=== PATIENT | male | born 1980 | race American Indian/Alaskan Native ===

== ENCOUNTER 2016-11-06 08:55 | Emergency (ER) | payer SELFPAY ==
--- NOTE | 2016-11-06 09:41 | XRay Report ---
ROUTINE CHEST, TWO VIEWS: History: Hemoptysis. PA and lateral views demonstrate the heart and mediastinal contour to be of normal size and shape. The lungs are clear and fully expanded and the soft tissues and bony structures are normal. IMPRESSION: Normal study.
[2016-11-06 10:11] LABS: Anion Gap 16 mmol/L; Blood Urea Nitrogen 11 mg/dL (9-20); Calcium 8.7 mg/dL (8.4-10.2); Carbon Dioxide 26 mmol/L (22-30); Chloride 104.6 mmol/L (98-107); Glucose 94 mg/dL (75-100); Potassium 4.8 mmol/L (3.6-5.0); Sodium 142 mmol/L (137-145)
[2016-11-06 10:21] LABS: INR 0.94 (0.87-1.13); Partial Thromboplastin Time 28.1 Sec. (24.2-36.6)
[2016-11-06 10:32] LABS: Hematocrit 44.5 % (35.5-45.6); Hemoglobin 14.6 gm/dl (11.8-15.2); Mean Corpuscular HGB Conc 33 % (32-34); Mean Corpuscular Hemoglobin 27 pg (28-32); Mean Corpuscular Volume 83 fl (84-94); Red Blood Count 5.34 M/mm3 (3.65-5.03); Red Cell Distribution Width 15.3 % (13.2-15.2); White Blood Count 6.2 K/mm3 (4.5-11.0)
--- NOTE | 2016-11-06 11:01 | Emergency Department Report ---
- General Chief Complaint: Upper Respiratory Infection Stated Complaint: COUGHING UP BLOOD Time Seen by Provider: 11/06/16 10:50 Source: patient Mode of arrival: Ambulatory Limitations: No Limitations - History of Present Illness Initial Comments: Patient is a 36 years old male, more his cough congestion he said he has been coughing blood denied any fever symptoms being on for 3 days no nausea no vomiting patient denied any history of high blood pressure normalized blood pressure is high here today I wanted to treat him that he'll refuse he said he will follow-up with his primary care physician. MD Complaint: cough Severity: moderate Associated Symptoms: cough. denies: fever, chills, chest pain, shortness of breath, abdominal pain, nausea, vomiting - Related Data Previous Rx's Medication Instructions Recorded Last Taken Type Amoxicillin [Amoxicillin TAB] 875 mg PO BID #14 tablet 11/06/16 Unknown Rx P-Ephed HCl/Codeine/Guaifen 10 ml PO Q4H PRN #100 ml 11/06/16 Unknown Rx [Cheratussin DAC 30-10-100 mg/5 ml] amLODIPine [Norvasc] 10 mg PO DAILY #30 tab 11/06/16 Unknown Rx Allergies Allergy/AdvReac Type Severity Reaction Status Date / Time No Known Allergies Allergy Unverified 11/06/16 09:07 ED Review of Systems ROS: Stated complaint: COUGHING UP BLOOD Other details as noted in HPI Constitutional: denies: chills, fever Respiratory: cough (greenish sputum with blood). denies: shortness of breath, SOB with exertion Cardiovascular: denies: chest pain ED Past Medical Hx - Past Medical History Previous Medical History?: No Additional medical history: obeisity - Surgical History Past Surgical History?: Yes Additional Surgical History: tonsils - Social History Smoking Status: Current Some Day Smoker Substance Use Type: Alcohol, Marijuana - Medications Home Medications: Home Medications Medication Instructions Recorded Confirmed Last Taken Type Amoxicillin [Amoxicillin TAB] 875 mg PO BID #14 tablet 11/06/16 Unknown Rx P-Ephed HCl/Codeine/Guaifen 10 ml PO Q4H PRN #100 ml 11/06/16 Unknown Rx [Cheratussin DAC 30-10-100 mg/5 ml] amLODIPine [Norvasc] 10 mg PO DAILY #30 tab 11/06/16 Unknown Rx ED Physical Exam - General Limitations: No Limitations General appearance: alert - ENT ENT exam: Present: normal exam - Neck Neck exam: Present: normal inspection. Absent: lymphadenopathy - Respiratory Respiratory exam: Present: normal lung sounds bilaterally. Absent: respiratory distress, wheezes, rales, rhonchi, stridor, chest wall tenderness, accessory muscle use - Cardiovascular Cardiovascular Exam: Present: regular rate, normal rhythm, normal heart sounds - GI/Abdominal GI/Abdominal exam: Present: soft. Absent: distended, tenderness, guarding, rebound, rigid, normal bowel sounds - Neurological Exam Neurological exam: Present: alert, oriented X3, CN II-XII intact - Skin Skin exam: Present: warm, normal color ED Course Vital Signs 11/06/16 11/06/16 11/06/16 09:09 09:52 09:55 Temperature 98.0 F Pulse Rate 78 Respiratory 17 Rate Blood Pressure 187/122 183/105 183/105 Blood Pressure 187/122 [Right] O2 Sat by Pulse 98 97 Oximetry 11/06/16 11/06/16 11/06/16 09:57 09:59 10:01 Temperature Pulse Rate 72 69 73 Respiratory 23 23 12 Rate Blood Pressure 178/101 178/101 178/101 Blood Pressure [Right] O2 Sat by Pulse 93 98 98 Oximetry 11/06/16 11/06/16 11/06/16 10:02 10:05 10:07 Temperature Pulse Rate 71 73 78 Respiratory 21 16 22 Rate Blood Pressure 169/104 169/104 169/104 Blood Pressure [Right] O2 Sat by Pulse 94 99 98 Oximetry 11/06/16 11/06/16 11/06/16 10:09 10:11 10:20 Temperature Pulse Rate 69 79 Respiratory 16 17 17 Rate Blood Pressure 169/104 169/104 Blood Pressure [Right] O2 Sat by Pulse 95 100 98 Oximetry ED Medical Decision Making - Lab Data Result diagrams: 11/06/16 09:40 11/06/16 09:40 Critical care attestation.: If time is entered above; I have spent that time in minutes in the direct care of this critically ill patient, excluding procedure time. ED Disposition Clinical Impression: Acute bronchitis, Hypertension Disposition: DC-01 TO HOME OR SELFCARE Is pt being admited?: No Condition: Stable Instructions: Acute Bronchitis (ED), Hypertension (ED) Referrals: PRIMARY CARE, [Primary Care Provider] - 3-5 Days
[2016-11-06 11:09] LABS: Platelet Count 226 K/mm3 (140-440)
[2016-11-06 11:12] VITALS: BP 183/105
== END 2016-11-06 11:11 | disposition home or self-care (01) ==
LOC: ED 08:55
DX: J20.9 Acute bronchitis, unspecified (principal); I10 Essential (primary) hypertension; F17.210 Nicotine dependence, cigarettes, uncomplicated; F12.10 Cannabis abuse, uncomplicated
CPT/HCPCS: 36415; 71020; 80048; 85025; 85610; 85730; 93005; 93010; 99284

== ENCOUNTER 2016-12-10 18:00 | Emergency (ER) | payer SELFPAY ==
[2016-12-11 08:44] VITALS: BP 188/112
== END 2016-12-11 19:39 | disposition left against medical advice (07) ==
LOC: ED 22:30
DX: M25.512 Pain in left shoulder (principal); Z53.21 Procedure and treatment not carried out due to patient leaving prior to being seen by health care provider

== ENCOUNTER 2017-04-20 11:00 | Emergency (ER) | payer SELFPAY ==
[2017-04-20] MEDS ORDERED: TYLENOL #3 PO ONE (14:40)
[2017-04-20] MEDS ORDERED: MOTRIN PO ONE (14:40)
--- NOTE | 2017-04-20 14:40 | Emergency Department Report ---
ED General Adult HPI - General Chief complaint: Earache Stated complaint: EAR INFECTION Time Seen by Provider: 04/20/17 14:33 Source: patient, RN notes reviewed, old records reviewed Mode of arrival: Ambulatory Limitations: No Limitations - History of Present Illness Initial comments: This is a 36-year-old male who was previously on known to this provider, typically follows at the [facility]. Has a history of hypertension, ran out of medicine a few months ago. Presents to the ER with dental pain in bilateral ear pain for 2 weeks. His pain is sharp. It increases with percussion, drinking, eating. Denies headache, neck pain, chest pain, abdominal pain, shortness of breath, stridor, tinnitus, vertigo, change in auditory acuity. -: Gradual Location: mouth (bilateral ears) Quality: aching Consistency: constant Improves with: rest Worsens with: movement Associated Symptoms: denies: confusion, chest pain, cough, diaphoresis, fever/ chills, headaches, loss of appetite, malaise, nausea/vomiting, shortness of breath, syncope, weakness - Related Data Previous Rx's Medication Instructions Recorded Last Taken Type Amoxicillin [Amoxicillin TAB] 875 mg PO BID #14 tablet 11/06/16 Unknown Rx Pseudoephed/Codeine/Guaifen 10 ml PO Q4H PRN #100 ml 11/06/16 Unknown Rx [Cheratussin DAC 30-10-100 mg/5 ml] Acetaminophen [Tylenol Arthritis] 650 mg PO Q6HR PRN #30 tablet.er 04/20/17 Unknown Rx Chlorhexidine Mouthwash [Peridex] 15 ml MM BID #1 bottle 04/20/17 Unknown Rx Ibuprofen [Motrin] 600 mg PO Q8H PRN #30 tablet 04/20/17 Unknown Rx Penicillin V Potassium 500 mg PO BID #14 tablet 04/20/17 Unknown Rx amLODIPine [Norvasc] 10 mg PO DAILY #30 tab 04/20/17 Unknown Rx oxyCODONE [Roxicodone] 5 mg PO Q6HR PRN #15 tablet 04/20/17 Unknown Rx Allergies Allergy/AdvReac Type Severity Reaction Status Date / Time No Known Allergies Allergy Verified 04/20/17 11:13 ED Review of Systems ROS: Stated complaint: EAR INFECTION Other details as noted in HPI ED Past Medical Hx - Past Medical History Hx Hypertension: Yes Additional medical history: obeisity - Surgical History Additional Surgical History: tonsils - Social History Smoking Status: Current Every Day Smoker Substance Use Type: None - Medications Home Medications: Home Medications Medication Instructions Recorded Confirmed Last Taken Type Amoxicillin [Amoxicillin TAB] 875 mg PO BID #14 tablet 11/06/16 Unknown Rx Pseudoephed/Codeine/Guaifen 10 ml PO Q4H PRN #100 ml 11/06/16 Unknown Rx [Cheratussin DAC 30-10-100 mg/5 ml] Acetaminophen [Tylenol Arthritis] 650 mg PO Q6HR PRN #30 tablet.er 04/20/17 Unknown Rx Chlorhexidine Mouthwash [Peridex] 15 ml MM BID #1 bottle 04/20/17 Unknown Rx Ibuprofen [Motrin] 600 mg PO Q8H PRN #30 tablet 04/20/17 Unknown Rx Penicillin V Potassium 500 mg PO BID #14 tablet 04/20/17 Unknown Rx amLODIPine [Norvasc] 10 mg PO DAILY #30 tab 04/20/17 Unknown Rx oxyCODONE [Roxicodone] 5 mg PO Q6HR PRN #15 tablet 04/20/17 Unknown Rx ED Physical Exam - General Limitations: No Limitations General appearance: alert, in no apparent distress - Head Head exam: Present: atraumatic, normocephalic - Eye Eye exam: Present: normal appearance, EOMI. Absent: nystagmus - ENT ENT exam: Present: normal exam (numerous dental caries noted. Teeth #15, 16 tender and fractured. Tooth #25 tender and fractured. There is no stridor, there is no swelling the base of the tongue. There is no trismus or malocclusion. The patient is speaking in full sentences.), normal orophraynx, mucous membranes moist, TM's normal bilaterally, normal external ear exam, other (there is no mastoid tenderness. There is no tenderness on the helix. There are no vesicles. External auditory canals within normal limits.) - Neck Neck exam: Present: normal inspection, full ROM - Respiratory Respiratory exam: Present: normal lung sounds bilaterally. Absent: respiratory distress - Cardiovascular Cardiovascular Exam: Present: regular rate, normal rhythm, normal heart sounds. Absent: bradycardia, tachycardia, irregular rhythm, systolic murmur, diastolic murmur, rubs, gallop - GI/Abdominal GI/Abdominal exam: Present: soft, normal bowel sounds. Absent: distended, tenderness, guarding, rebound, rigid, pulsatile mass - Rectal Rectal exam: Present: deferred - Extremities Exam Extremities exam: Present: normal inspection, full ROM - Back Exam Back exam: Present: normal inspection, full ROM. Absent: tenderness, CVA tenderness (R), paraspinal tenderness, vertebral tenderness - Neurological Exam Neurological exam: Present: alert, oriented X3, CN II-XII intact, normal gait, other (Extraocular movements intact. Tongue midline. No facial droop. Facial sensation intact to light touch in the V1, V2, V3 distribution bilaterally. 5 and 5 strength in 4 extremities.. Sensation is intact to light touch in 4 extremities.). Absent: motor sensory deficit - Psychiatric Psychiatric exam: Present: normal affect, normal mood - Skin Skin exam: Present: warm, dry, intact, normal color. Absent: rash ED Course Vital Signs 04/20/17 04/20/17 04/20/17 11:13 14:44 14:45 Temperature 98.2 F Pulse Rate 86 Respiratory 18 18 18 Rate Blood Pressure 178/110 O2 Sat by Pulse 100 Oximetry ED Medical Decision Making - Lab Data Vital Signs 04/20/17 04/20/17 04/20/17 11:13 14:44 14:45 Temperature 98.2 F Pulse Rate 86 Respiratory 18 18 18 Rate Blood Pressure 178/110 O2 Sat by Pulse 100 Oximetry - Medical Decision Making Differential diagnosis, including but not limited to: Medication refill, hypertension, dentalgia, referred pain Assessment and plan: 36-year-old male with dentalgia, bilateral ear pain, most likely tension referred pain. Also has incidental hypertension which is asymptomatic. Patient will have his amlodipine prescription refilled. He will be discharged with pain medication, chlorhexidine, antibiotics, instructed to follow up with outpatient primary care, dental. Return precautions reviewed. Critical care attestation.: If time is entered above; I have spent that time in minutes in the direct care of this critically ill patient, excluding procedure time. ED Disposition Clinical Impression: Dentalgia, Elevated blood pressure reading Disposition: TO HOME OR SELFCARE Is pt being admited?: No Does the pt Need Aspirin: No Condition: Stable Instructions: Dental Caries (ED), Toothache (ED), Hypertension (ED) Additional Instructions: Take medications as needed/directed. Follow up with a dentist as soon as possible. Please note that blood pressure was elevated. This seems to be followed up by a primary care doctor within the next month. Long-term complications of hypertension and elevated blood pressure includes stroke, heart attack, disability, , paralysis, loss of quality of life. Return to the ER right away with new pain, worsened pain, migration of pain, fevers, chills, lethargy, irritability, vomiting, change in mental status, confusion, inability to tolerate liquid feeds, extremity weakness, numbness. Prescriptions: amLODIPine [Norvasc] 10 mg PO DAILY #30 tab Referrals: PRIMARY CAREMD [Primary Care Provider] - 3-5 Days STEPHANIE MONACO MD [Staff Physician] - 3-5 Days [facility] [Outside] - 3-5 Days [facility] [Outside] - 3-5 Days
[2017-04-20 15:51] VITALS: BP 189/104
== END 2017-04-20 18:30 | disposition home or self-care (01) ==
LOC: ED 11:00
DX: K08.89 Other specified disorders of teeth and supporting structures (principal); I10 Essential (primary) hypertension
CPT/HCPCS: 99282